=== PATIENT | male | born 1945 | race Caucasian/White ===

== ENCOUNTER → 2017-01-21 | Outpatient (CLI) | payer BC, MEDICARE ==
[~2017-01-21] MED LIST: HYDR-4246 PO
--- NOTE | 2017-01-21 10:37 | DI ---
Indication: ITS.REASON: Z82.49 Family history of ischemic heart disease and other disease US ABDOMINAL AORTA, NON-DUPLEX: Comparison: None Technique: Real-time and color flow imaging provided Findings: Patient shows proximal aorta measuring 1.5 cm in AP orientation and 2.0 cm in width Mid aorta is measuring 1.7 cm in AP orientation and 1.8 cm in width Distal aorta is measuring 1.6 cm in AP orientation and 1.9 cm in width. Impression: No significant suggestion of abdominal aortic aneurysm currently appreciated. .
== END ==
LOC: IMA 09:26
PROVIDERS: ATTEND Internal Medicine
DX: Z82.49 Family history of ischemic heart disease and other diseases of the circulatory system (principal)